=== PATIENT | male | born 1945 | race Caucasian/White ===

== ENCOUNTER 2020-02-18 10:39 | Emergency (ER) | payer MEDICARE ==
[~2020-02-18] VITALS: Ht 167.6 cm; Wt 59.6 kg
[2020-02-18 10:43] VITALS: BP 143/73
--- NOTE | 2020-02-18 10:55 | NUR ---
PT AMBULATORY TO ROOM, STEADY GAIT.
--- NOTE | 2020-02-18 11:05 | NUR ---
ERP TO BEDSIDE.
--- NOTE | 2020-02-18 11:37 | NUR ---
ERP TO BEDSIDE.
--- NOTE | 2020-02-18 11:37 | NUR ---
PT SITTING IN CHAIR, NO SIGNS OF DISTRESS, RESPIRATIONS EVEN AND UNLABORED, WILL CONTINUE TO MONITOR.
== END 2020-02-18 12:10 | disposition home or self-care (01) ==
LOC: ED 11:05
DX: J02.8 Acute pharyngitis due to other specified organisms (principal); Z20.828 Contact with and (suspected) exposure to other viral communicable diseases; B97.89 Other viral agents as the cause of diseases classified elsewhere
CPT/HCPCS: 87081; 87880; 99283; U0001